=== PATIENT | female | born 1940 | race Caucasian/White ===

== ENCOUNTER 2019-10-21 15:04 | Inpatient (IN) ==
[2019-10-22] MEDS: *HR* Heparin 5,000 UNIT/ML VIAL SQ SCH (23:01)
[2019-10-23 06:26] LABS: Basophils % 0.3 %; Eosinophils # 0.4 K/mcL (0.0-0.6); Hematocrit 29.8 % (35.3-44.9); Hemoglobin 9.8 g/dL (11.5-15.4); Immature Granulocytes % 2.6 % (0-4); Lymphocytes # 1.3 K/mcL (0.6-4.6); Lymphocytes % 20.6 %; Mean Corpuscular HGB Conc 32.9 g/dL (31.6-35.5); Mean Corpuscular Hemoglobin 31.1 pg (28.0-33.3); Mean Corpuscular Volume 94.6 fL (83.0-100.0); Monocytes # 0.6 K/mcL (0.0-1.3); Monocytes % 9.6 %; Neutrophils # 3.9 K/mcL (1.6-8.9); Platelet Count 255 K/mcL (140-400); Red Blood Count 3.15 M/mcL (3.82-4.97); Red Cell Distribution Width 14.2 % (11.5-14.5); Segmented Neutrophils % 60.9 %; White Blood Count 6.5 K/mcL (4.3-11.1)
[2019-10-23 06:27] LABS: Bilirubin,Urine Negative (Negative); Blood,Urine Small (Negative); Clarity,Urine Clear (Clear); Color,Urine Yellow (Yellow); Glucose,Urine (UA) Normal (Normal); Ketones,Urine Negative (Negative); Leukocyte Esterase,Urine Moderate (Negative); Nitrite,Urine Negative (Negative); Protein,Urine Negative (Neg-Trace); Urobilinogen,Urine Normal (Normal)
[2019-10-23 06:45] LABS: Calcium 8.6 mg/dL (8.6-10.3); Potassium 4.1 mEq/L (3.5-5.1)
[2019-10-23 07:17] LABS: RBC,Urine 0-3 per hpf (0-3)
[2019-10-23 07:18] LABS: Bacteria,Urine Moderate per hpf (None-Few); Squamous Epithelial Cell,Urine Many per lpf (None-Few)
[2019-10-23 07:24] LABS: INR 1.1; Prothrombin Time 12.5 Seconds (9.4-12.1)
[2019-10-23 07:27] LABS: Activated Partial Thrombo Time 48.9 Seconds (26.0-36.0)
[2019-10-23] MEDS: Lisinopril 20 MG TABLET PO SCH (08:27)
[2019-10-23] MEDS: Aspirin Enteric Coated 325 MG Tablet PO SCH (08:27)
[2019-10-23] MEDS: NIFEdipine 10 MG CAPSULE PO SCH ×2 (08:27→23:45)
[2019-10-23] MEDS: *HR* Heparin 5,000 UNIT/ML VIAL SQ SCH ×3 (08:28→23:45)
[2019-10-23] MEDS: Trolamine Salicylate/Aloe Vera 85 APPL/85 GM TUBE TP SCH (08:37)
[2019-10-23] MEDS: Cholecalciferol (D-3) 1,000 UNIT (25MCG) TABLET PO SCH (08:37)
[2019-10-23] MEDS ORDERED: Sennosides 8.6 MG TABLET PO SCH (09:00)
[2019-10-23] MEDS ORDERED: Sennosides 8.6 MG TABLET PO PRN (15:34)
[2019-10-24] MEDS: Lisinopril 20 MG TABLET PO SCH (08:47)
[2019-10-24] MEDS: *HR* Heparin 5,000 UNIT/ML VIAL SQ SCH ×2 (08:47→16:48)
[2019-10-24] MEDS: NIFEdipine 10 MG CAPSULE PO SCH ×2 (08:47→21:55)
[2019-10-24] MEDS: Aspirin Enteric Coated 325 MG Tablet PO SCH (08:48)
[2019-10-24] MEDS: Trolamine Salicylate/Aloe Vera 85 APPL/85 GM TUBE TP SCH (08:48)
[2019-10-24] MEDS: Cholecalciferol (D-3) 1,000 UNIT (25MCG) TABLET PO SCH (08:48)
[2019-10-24] MEDS: levoFLOXacin 250 MG TABLET PO SCH (22:36)
[2019-10-25] MEDS: *HR* Heparin 5,000 UNIT/ML VIAL SQ SCH ×4 (00:04→23:29)
[2019-10-25] MEDS: Trolamine Salicylate/Aloe Vera 85 APPL/85 GM TUBE TP SCH (08:45)
[2019-10-25] MEDS: NIFEdipine 10 MG CAPSULE PO SCH ×2 (09:35→20:49)
[2019-10-25] MEDS: Aspirin Enteric Coated 325 MG Tablet PO SCH (09:35)
[2019-10-25] MEDS: Lisinopril 20 MG TABLET PO SCH (09:35)
[2019-10-25] MEDS: levoFLOXacin 250 MG TABLET PO SCH (09:36)
[2019-10-25] MEDS: Cholecalciferol (D-3) 1,000 UNIT (25MCG) TABLET PO SCH ×2 (09:40→09:47)
[2019-10-25] MEDS: CloNIDine Patch 0.3 MG PATCH (WEEKLY) TD SCH (17:41)
[2019-10-26] MEDS: levoFLOXacin 250 MG TABLET PO SCH (08:19)
[2019-10-26] MEDS: Lisinopril 20 MG TABLET PO SCH (08:19)
[2019-10-26] MEDS: NIFEdipine 10 MG CAPSULE PO SCH ×2 (08:19→21:40)
[2019-10-26] MEDS: Aspirin Enteric Coated 325 MG Tablet PO SCH (08:19)
[2019-10-26] MEDS: *HR* Heparin 5,000 UNIT/ML VIAL SQ SCH ×3 (08:19→23:51)
[2019-10-26] MEDS: Trolamine Salicylate/Aloe Vera 85 APPL/85 GM TUBE TP SCH (08:20)
[2019-10-26] MEDS: Cholecalciferol (D-3) 1,000 UNIT (25MCG) TABLET PO SCH (08:20)
[2019-10-27] MEDS: Aspirin Enteric Coated 325 MG Tablet PO SCH (09:03)
[2019-10-27] MEDS: NIFEdipine 10 MG CAPSULE PO SCH ×2 (09:03→21:35)
[2019-10-27] MEDS: Lisinopril 20 MG TABLET PO SCH (09:03)
[2019-10-27] MEDS: Cholecalciferol (D-3) 1,000 UNIT (25MCG) TABLET PO SCH (09:03)
[2019-10-27] MEDS: *HR* Heparin 5,000 UNIT/ML VIAL SQ SCH ×2 (09:03→17:11)
[2019-10-27] MEDS: levoFLOXacin 250 MG TABLET PO SCH (09:03)
[2019-10-27] MEDS: Trolamine Salicylate/Aloe Vera 85 APPL/85 GM TUBE TP SCH (09:04)
[2019-10-28] MEDS: *HR* Heparin 5,000 UNIT/ML VIAL SQ SCH ×3 (00:41→17:00)
[2019-10-28 06:04] LABS: Calcium 8.8 mg/dL (8.6-10.3)
[2019-10-28] MEDS: Cholecalciferol (D-3) 1,000 UNIT (25MCG) TABLET PO SCH (08:35)
[2019-10-28] MEDS: NIFEdipine 10 MG CAPSULE PO SCH ×2 (08:35→20:38)
[2019-10-28] MEDS: Lisinopril 20 MG TABLET PO SCH (08:35)
[2019-10-28] MEDS: levoFLOXacin 250 MG TABLET PO SCH (08:35)
[2019-10-28] MEDS: Aspirin Enteric Coated 325 MG Tablet PO SCH (08:35)
[2019-10-28] MEDS: Trolamine Salicylate/Aloe Vera 85 APPL/85 GM TUBE TP SCH (08:36)
[2019-10-29] MEDS: *HR* Heparin 5,000 UNIT/ML VIAL SQ SCH ×4 (00:06→23:04)
[2019-10-29] MEDS: Trolamine Salicylate/Aloe Vera 85 APPL/85 GM TUBE TP SCH (08:08)
[2019-10-29] MEDS: NIFEdipine 10 MG CAPSULE PO SCH ×2 (08:16→22:59)
[2019-10-29] MEDS: Aspirin Enteric Coated 325 MG Tablet PO SCH (08:16)
[2019-10-29] MEDS: Cholecalciferol (D-3) 1,000 UNIT (25MCG) TABLET PO SCH (08:17)
[2019-10-29] MEDS: Lisinopril 20 MG TABLET PO SCH (08:17)
[2019-10-29] MEDS: levoFLOXacin 250 MG TABLET PO SCH (08:17)
[2019-10-30 05:59] LABS: Basophils % 0.7 %; Eosinophils # 0.2 K/mcL (0.0-0.6); Eosinophils % 4.3 %; Hematocrit 28.7 % (35.3-44.9); Hemoglobin 9.4 g/dL (11.5-15.4); Immature Granulocytes % 1.4 % (0-4); Lymphocytes # 1.2 K/mcL (0.6-4.6); Lymphocytes % 21.5 %; Mean Corpuscular HGB Conc 32.8 g/dL (31.6-35.5); Mean Corpuscular Hemoglobin 30.4 pg (28.0-33.3); Mean Corpuscular Volume 92.9 fL (83.0-100.0); Mean Platelet Volume 10.5 fL (9.4-12.4); Monocytes # 0.6 K/mcL (0.0-1.3); Monocytes % 11.3 %; Neutrophils # 3.4 K/mcL (1.6-8.9); Platelet Count 319 K/mcL (140-400); Red Blood Count 3.09 M/mcL (3.82-4.97); Red Cell Distribution Width 14.3 % (11.5-14.5); Segmented Neutrophils % 60.8 %; White Blood Count 5.6 K/mcL (4.3-11.1)
[2019-10-30 06:15] LABS: Calcium 8.9 mg/dL (8.6-10.3); Potassium 4.9 mEq/L (3.5-5.1)
[2019-10-30] MEDS: Trolamine Salicylate/Aloe Vera 85 APPL/85 GM TUBE TP SCH (08:51)
[2019-10-30] MEDS: Cholecalciferol (D-3) 1,000 UNIT (25MCG) TABLET PO SCH (08:52)
[2019-10-30] MEDS: levoFLOXacin 250 MG TABLET PO SCH (08:52)
[2019-10-30] MEDS: Aspirin Enteric Coated 325 MG Tablet PO SCH (08:53)
[2019-10-30] MEDS: NIFEdipine 10 MG CAPSULE PO SCH ×2 (08:53→20:30)
[2019-10-30] MEDS: Lisinopril 20 MG TABLET PO SCH (08:53)
[2019-10-30] MEDS: *HR* Heparin 5,000 UNIT/ML VIAL SQ SCH ×2 (08:53→17:05)
[2019-10-31] MEDS: *HR* Heparin 5,000 UNIT/ML VIAL SQ SCH ×3 (00:10→16:45)
[2019-10-31] MEDS: Lisinopril 20 MG TABLET PO SCH (08:45)
[2019-10-31] MEDS: Aspirin Enteric Coated 325 MG Tablet PO SCH (08:45)
[2019-10-31] MEDS: NIFEdipine 10 MG CAPSULE PO SCH ×2 (08:45→21:00)
[2019-10-31] MEDS: Cholecalciferol (D-3) 1,000 UNIT (25MCG) TABLET PO SCH (08:45)
[2019-10-31] MEDS: Trolamine Salicylate/Aloe Vera 85 APPL/85 GM TUBE TP SCH (08:45)
[2019-11-01] MEDS: *HR* Heparin 5,000 UNIT/ML VIAL SQ SCH ×4 (00:35→23:00)
[2019-11-01] MEDS: tiZANidine 4 MG TABLET PO PRN (07:48)
[2019-11-01] MEDS: Lisinopril 20 MG TABLET PO SCH (08:56)
[2019-11-01] MEDS: NIFEdipine 10 MG CAPSULE PO SCH ×2 (08:56→22:59)
[2019-11-01] MEDS: Aspirin Enteric Coated 325 MG Tablet PO SCH (08:56)
[2019-11-01] MEDS: Cholecalciferol (D-3) 1,000 UNIT (25MCG) TABLET PO SCH (08:56)
[2019-11-01] MEDS: Trolamine Salicylate/Aloe Vera 85 APPL/85 GM TUBE TP SCH (09:02)
[2019-11-01 12:44] LABS: Calcium 9.7 mg/dL (8.6-10.3); Potassium 5.1 mEq/L (3.5-5.1)
[2019-11-01] MEDS ORDERED: 0.9 % Sodium Chloride 1,000 ML IV ONE (12:57)
[2019-11-01] MEDS: CloNIDine Patch 0.3 MG PATCH (WEEKLY) TD SCH (16:16)
[2019-11-02 06:25] LABS: Calcium 8.6 mg/dL (8.6-10.3); Potassium 4.9 mEq/L (3.5-5.1)
[2019-11-02] MEDS: *HR* Heparin 5,000 UNIT/ML VIAL SQ SCH ×3 (08:41→22:55)
[2019-11-02] MEDS: Aspirin Enteric Coated 325 MG Tablet PO SCH (08:42)
[2019-11-02] MEDS: NIFEdipine 10 MG CAPSULE PO SCH ×2 (08:42→22:55)
[2019-11-02] MEDS: Lisinopril 20 MG TABLET PO SCH (08:42)
[2019-11-02] MEDS: Cholecalciferol (D-3) 1,000 UNIT (25MCG) TABLET PO SCH (08:42)
[2019-11-02] MEDS: Trolamine Salicylate/Aloe Vera 85 APPL/85 GM TUBE TP SCH (08:43)
[2019-11-03 05:15] LABS: Basophils % 0.8 %; Eosinophils # 0.3 K/mcL (0.0-0.6); Eosinophils % 5.8 %; Hematocrit 27.5 % (35.3-44.9); Hemoglobin 8.9 g/dL (11.5-15.4); Immature Granulocytes % 0.8 % (0-4); Lymphocytes # 1.5 K/mcL (0.6-4.6); Lymphocytes % 28.2 %; Mean Corpuscular HGB Conc 32.4 g/dL (31.6-35.5); Mean Corpuscular Volume 95.8 fL (83.0-100.0); Mean Platelet Volume 10.3 fL (9.4-12.4); Monocytes # 0.4 K/mcL (0.0-1.3); Monocytes % 8.1 %; Platelet Count 314 K/mcL (140-400); Red Blood Count 2.87 M/mcL (3.82-4.97); Red Cell Distribution Width 14.9 % (11.5-14.5); Segmented Neutrophils % 56.3 %; White Blood Count 5.3 K/mcL (4.3-11.1)
[2019-11-03 05:38] LABS: Calcium 8.9 mg/dL (8.6-10.3)
[2019-11-03] MEDS: NIFEdipine 10 MG CAPSULE PO SCH ×2 (08:26→22:26)
[2019-11-03] MEDS: Aspirin Enteric Coated 325 MG Tablet PO SCH (08:26)
[2019-11-03] MEDS: *HR* Heparin 5,000 UNIT/ML VIAL SQ SCH ×3 (08:26→23:03)
[2019-11-03] MEDS: Cholecalciferol (D-3) 1,000 UNIT (25MCG) TABLET PO SCH (08:26)
[2019-11-03] MEDS: Trolamine Salicylate/Aloe Vera 85 APPL/85 GM TUBE TP SCH (08:27)
[2019-11-04] MEDS: NIFEdipine 10 MG CAPSULE PO SCH ×2 (09:54→21:46)
[2019-11-04] MEDS: Cholecalciferol (D-3) 1,000 UNIT (25MCG) TABLET PO SCH (09:54)
[2019-11-04] MEDS: Aspirin Enteric Coated 325 MG Tablet PO SCH (09:54)
[2019-11-04] MEDS: Trolamine Salicylate/Aloe Vera 85 APPL/85 GM TUBE TP SCH (09:55)
[2019-11-04] MEDS: *HR* Heparin 5,000 UNIT/ML VIAL SQ SCH ×2 (09:55→15:26)
[2019-11-05] MEDS: *HR* Heparin 5,000 UNIT/ML VIAL SQ SCH ×3 (00:50→16:56)
[2019-11-05 06:08] LABS: Basophils % 0.4 %; Eosinophils # 0.2 K/mcL (0.0-0.6); Eosinophils % 4.6 %; Hematocrit 27.4 % (35.3-44.9); Hemoglobin 8.8 g/dL (11.5-15.4); Immature Granulocytes % 0.7 % (0-4); Lymphocytes # 1.2 K/mcL (0.6-4.6); Lymphocytes % 26.8 %; Mean Corpuscular HGB Conc 32.1 g/dL (31.6-35.5); Mean Corpuscular Hemoglobin 30.3 pg (28.0-33.3); Mean Corpuscular Volume 94.5 fL (83.0-100.0); Monocytes # 0.4 K/mcL (0.0-1.3); Neutrophils # 2.7 K/mcL (1.6-8.9); Platelet Count 276 K/mcL (140-400); Red Cell Distribution Width 14.7 % (11.5-14.5); Segmented Neutrophils % 58.5 %; White Blood Count 4.6 K/mcL (4.3-11.1)
[2019-11-05 06:22] LABS: Calcium 8.7 mg/dL (8.6-10.3); Potassium 5.1 mEq/L (3.5-5.1)
[2019-11-05] MEDS: Cholecalciferol (D-3) 1,000 UNIT (25MCG) TABLET PO SCH (08:05)
[2019-11-05] MEDS: Aspirin Enteric Coated 325 MG Tablet PO SCH (08:05)
[2019-11-05] MEDS: Trolamine Salicylate/Aloe Vera 85 APPL/85 GM TUBE TP SCH (08:05)
[2019-11-05] MEDS: tiZANidine 4 MG TABLET PO PRN (08:06)
[2019-11-05] MEDS: NIFEdipine 10 MG CAPSULE PO SCH ×2 (08:12→20:34)
[2019-11-06] MEDS: *HR* Heparin 5,000 UNIT/ML VIAL SQ SCH ×3 (00:07→16:13)
[2019-11-06] MEDS: NIFEdipine 10 MG CAPSULE PO SCH ×2 (08:29→21:43)
[2019-11-06] MEDS: Trolamine Salicylate/Aloe Vera 85 APPL/85 GM TUBE TP SCH (08:30)
[2019-11-06] MEDS: Cholecalciferol (D-3) 1,000 UNIT (25MCG) TABLET PO SCH (08:30)
[2019-11-06] MEDS: tiZANidine 4 MG TABLET PO PRN (08:30)
[2019-11-06] MEDS: Aspirin Enteric Coated 325 MG Tablet PO SCH (08:30)
[2019-11-07] MEDS: *HR* Heparin 5,000 UNIT/ML VIAL SQ SCH ×3 (00:45→16:45)
[2019-11-07] MEDS: Cholecalciferol (D-3) 1,000 UNIT (25MCG) TABLET PO SCH (08:57)
[2019-11-07] MEDS: Aspirin Enteric Coated 325 MG Tablet PO SCH (08:57)
[2019-11-07] MEDS: NIFEdipine 10 MG CAPSULE PO SCH ×3 (08:57→22:09)
[2019-11-07] MEDS: Trolamine Salicylate/Aloe Vera 85 APPL/85 GM TUBE TP SCH (08:57)
[2019-11-07] MEDS: tiZANidine 4 MG TABLET PO PRN (12:46)
[2019-11-07] MEDS: Famotidine 20 MG TABLET PO SCH (13:41)
[2019-11-08] MEDS: *HR* Heparin 5,000 UNIT/ML VIAL SQ SCH ×4 (00:30→23:43)
[2019-11-08] MEDS: Trolamine Salicylate/Aloe Vera 85 APPL/85 GM TUBE TP SCH (08:24)
[2019-11-08] MEDS: Famotidine 20 MG TABLET PO SCH (08:24)
[2019-11-08] MEDS: Aspirin Enteric Coated 325 MG Tablet PO SCH (08:24)
[2019-11-08] MEDS: Cholecalciferol (D-3) 1,000 UNIT (25MCG) TABLET PO SCH (08:28)
[2019-11-08] MEDS: NIFEdipine 10 MG CAPSULE PO SCH ×2 (08:29→23:43)
[2019-11-08] MEDS: CloNIDine Patch 0.3 MG PATCH (WEEKLY) TD SCH (17:47)
[2019-11-08] MEDS: tiZANidine 4 MG TABLET PO PRN (23:43)
[2019-11-09 05:40] LABS: Basophils % 0.4 %; Eosinophils # 0.3 K/mcL (0.0-0.6); Eosinophils % 6.3 %; Hematocrit 27.8 % (35.3-44.9); Immature Granulocytes % 1.1 % (0-4); Lymphocytes # 1.4 K/mcL (0.6-4.6); Lymphocytes % 30.6 %; Mean Corpuscular HGB Conc 32.4 g/dL (31.6-35.5); Mean Corpuscular Volume 95.9 fL (83.0-100.0); Mean Platelet Volume 10.2 fL (9.4-12.4); Monocytes # 0.4 K/mcL (0.0-1.3); Monocytes % 8.5 %; Neutrophils # 2.4 K/mcL (1.6-8.9); Platelet Count 228 K/mcL (140-400); Segmented Neutrophils % 53.1 %; White Blood Count 4.5 K/mcL (4.3-11.1)
[2019-11-09 05:57] LABS: Potassium 5.2 mEq/L (3.5-5.1)
[2019-11-09] MEDS: NIFEdipine 10 MG CAPSULE PO SCH ×2 (08:38→20:40)
[2019-11-09] MEDS: *HR* Heparin 5,000 UNIT/ML VIAL SQ SCH ×2 (08:39→16:16)
[2019-11-09] MEDS: tiZANidine 4 MG TABLET PO PRN (08:39)
[2019-11-09] MEDS: Famotidine 20 MG TABLET PO SCH (08:39)
[2019-11-09] MEDS: Aspirin Enteric Coated 325 MG Tablet PO SCH (08:39)
[2019-11-09] MEDS: Cholecalciferol (D-3) 1,000 UNIT (25MCG) TABLET PO SCH (08:39)
[2019-11-09] MEDS: Trolamine Salicylate/Aloe Vera 85 APPL/85 GM TUBE TP SCH (08:49)
[2019-11-10] MEDS: *HR* Heparin 5,000 UNIT/ML VIAL SQ SCH ×3 (00:10→17:16)
[2019-11-10 07:36] LABS: Basophils % 0.2 %; Eosinophils # 0.3 K/mcL (0.0-0.6); Eosinophils % 4.8 %; Hematocrit 28.4 % (35.3-44.9); Hemoglobin 9.3 g/dL (11.5-15.4); Lymphocytes # 1.2 K/mcL (0.6-4.6); Mean Corpuscular HGB Conc 32.7 g/dL (31.6-35.5); Mean Corpuscular Hemoglobin 31.2 pg (28.0-33.3); Mean Corpuscular Volume 95.3 fL (83.0-100.0); Mean Platelet Volume 9.5 fL (9.4-12.4); Monocytes # 0.4 K/mcL (0.0-1.3); Neutrophils # 3.4 K/mcL (1.6-8.9); Platelet Count 219 K/mcL (140-400); Red Blood Count 2.98 M/mcL (3.82-4.97); Red Cell Distribution Width 15.2 % (11.5-14.5); White Blood Count 5.3 K/mcL (4.3-11.1)
[2019-11-10 07:55] LABS: Calcium 8.9 mg/dL (8.6-10.3); Potassium 4.4 mEq/L (3.5-5.1)
[2019-11-10] MEDS: Cholecalciferol (D-3) 1,000 UNIT (25MCG) TABLET PO SCH (08:30)
[2019-11-10] MEDS: Aspirin Enteric Coated 325 MG Tablet PO SCH (08:31)
[2019-11-10] MEDS: Trolamine Salicylate/Aloe Vera 85 APPL/85 GM TUBE TP SCH (08:31)
[2019-11-10] MEDS: Famotidine 20 MG TABLET PO SCH (08:31)
[2019-11-10] MEDS: NIFEdipine 10 MG CAPSULE PO SCH ×2 (08:31→20:38)
[2019-11-10] MEDS ORDERED: 0.9 % Sodium Chloride 1,000 ML IV ONE (10:28)
[2019-11-10] MEDS: tiZANidine 4 MG TABLET PO PRN (11:06)
[2019-11-11] MEDS: *HR* Heparin 5,000 UNIT/ML VIAL SQ SCH ×3 (00:22→15:55)
[2019-11-11 08:00] LABS: Basophils % 0.4 %; Eosinophils # 0.3 K/mcL (0.0-0.6); Eosinophils % 5.7 %; Hemoglobin 9.9 g/dL (11.5-15.4); Immature Granulocytes % 0.6 % (0-4); Lymphocytes # 1.2 K/mcL (0.6-4.6); Lymphocytes % 23.4 %; Mean Corpuscular HGB Conc 31.9 g/dL (31.6-35.5); Mean Corpuscular Hemoglobin 30.7 pg (28.0-33.3); Mean Corpuscular Volume 96.3 fL (83.0-100.0); Monocytes # 0.4 K/mcL (0.0-1.3); Monocytes % 7.2 %; Neutrophils # 3.3 K/mcL (1.6-8.9); Platelet Count 224 K/mcL (140-400); Red Blood Count 3.22 M/mcL (3.82-4.97); Red Cell Distribution Width 15.3 % (11.5-14.5); Segmented Neutrophils % 62.7 %; White Blood Count 5.3 K/mcL (4.3-11.1)
[2019-11-11] MEDS: NIFEdipine 10 MG CAPSULE PO SCH ×2 (08:13→21:36)
[2019-11-11] MEDS: Aspirin Enteric Coated 325 MG Tablet PO SCH (08:14)
[2019-11-11] MEDS: Famotidine 20 MG TABLET PO SCH (08:14)
[2019-11-11] MEDS: Cholecalciferol (D-3) 1,000 UNIT (25MCG) TABLET PO SCH (08:14)
[2019-11-11] MEDS: tiZANidine 4 MG TABLET PO PRN (08:14)
[2019-11-11] MEDS: Trolamine Salicylate/Aloe Vera 85 APPL/85 GM TUBE TP SCH (08:14)
[2019-11-11 08:17] LABS: Calcium 8.6 mg/dL (8.6-10.3); Potassium 3.7 mEq/L (3.5-5.1)
[2019-11-12] MEDS: *HR* Heparin 5,000 UNIT/ML VIAL SQ SCH ×4 (00:40→23:32)
[2019-11-12 05:15] LABS: Basophils % 0.2 %; Eosinophils # 0.4 K/mcL (0.0-0.6); Hematocrit 26.4 % (35.3-44.9); Hemoglobin 8.7 g/dL (11.5-15.4); Immature Granulocytes % 0.9 % (0-4); Lymphocytes # 1.3 K/mcL (0.6-4.6); Lymphocytes % 27.1 %; Mean Corpuscular Hemoglobin 31.2 pg (28.0-33.3); Mean Corpuscular Volume 94.6 fL (83.0-100.0); Mean Platelet Volume 10.2 fL (9.4-12.4); Monocytes # 0.4 K/mcL (0.0-1.3); Monocytes % 8.6 %; Neutrophils # 2.6 K/mcL (1.6-8.9); Platelet Count 190 K/mcL (140-400); Red Blood Count 2.79 M/mcL (3.82-4.97); Red Cell Distribution Width 15.2 % (11.5-14.5); Segmented Neutrophils % 55.2 %; White Blood Count 4.7 K/mcL (4.3-11.1)
[2019-11-12 05:30] LABS: Calcium 8.5 mg/dL (8.6-10.3); Potassium 4.1 mEq/L (3.5-5.1)
[2019-11-12] MEDS: Famotidine 20 MG TABLET PO SCH (08:51)
[2019-11-12] MEDS: Aspirin Enteric Coated 325 MG Tablet PO SCH (08:51)
[2019-11-12] MEDS: NIFEdipine 10 MG CAPSULE PO SCH ×2 (08:51→22:14)
[2019-11-12] MEDS: Cholecalciferol (D-3) 1,000 UNIT (25MCG) TABLET PO SCH (08:51)
[2019-11-12] MEDS: Trolamine Salicylate/Aloe Vera 85 APPL/85 GM TUBE TP SCH (08:52)
[2019-11-12] MEDS: tiZANidine 4 MG TABLET PO PRN (08:56)
[2019-11-13] MEDS: Trolamine Salicylate/Aloe Vera 85 APPL/85 GM TUBE TP SCH (08:31)
[2019-11-13] MEDS: Famotidine 20 MG TABLET PO SCH (08:37)
[2019-11-13] MEDS: Cholecalciferol (D-3) 1,000 UNIT (25MCG) TABLET PO SCH (08:38)
[2019-11-13] MEDS: NIFEdipine 10 MG CAPSULE PO SCH ×2 (08:38→20:02)
[2019-11-13] MEDS: *HR* Heparin 5,000 UNIT/ML VIAL SQ SCH ×2 (08:38→16:05)
[2019-11-13] MEDS: Aspirin Enteric Coated 325 MG Tablet PO SCH (08:38)
[2019-11-13] MEDS: tiZANidine 4 MG TABLET PO PRN (08:40)
[2019-11-14] MEDS: *HR* Heparin 5,000 UNIT/ML VIAL SQ SCH ×4 (00:08→23:34)
[2019-11-14 05:26] LABS: Basophils % 0.4 %; Eosinophils # 0.3 K/mcL (0.0-0.6); Eosinophils % 7.2 %; Hematocrit 26.7 % (35.3-44.9); Hemoglobin 8.7 g/dL (11.5-15.4); Immature Granulocytes % 1.1 % (0-4); Lymphocytes # 1.7 K/mcL (0.6-4.6); Lymphocytes % 35.8 %; Mean Corpuscular HGB Conc 32.6 g/dL (31.6-35.5); Mean Corpuscular Hemoglobin 31.3 pg (28.0-33.3); Mean Platelet Volume 10.2 fL (9.4-12.4); Monocytes # 0.4 K/mcL (0.0-1.3); Monocytes % 7.8 %; Neutrophils # 2.2 K/mcL (1.6-8.9); Platelet Count 174 K/mcL (140-400); Red Blood Count 2.78 M/mcL (3.82-4.97); Red Cell Distribution Width 15.5 % (11.5-14.5); Segmented Neutrophils % 47.7 %; White Blood Count 4.6 K/mcL (4.3-11.1)
[2019-11-14 05:38] LABS: Calcium 8.6 mg/dL (8.6-10.3); Potassium 4.3 mEq/L (3.5-5.1)
[2019-11-14] MEDS: tiZANidine 4 MG TABLET PO PRN ×2 (09:16→23:34)
[2019-11-14] MEDS: Aspirin Enteric Coated 325 MG Tablet PO SCH (09:16)
[2019-11-14] MEDS: NIFEdipine 10 MG CAPSULE PO SCH ×2 (09:16→23:35)
[2019-11-14] MEDS: Famotidine 20 MG TABLET PO SCH (09:17)
[2019-11-14] MEDS: Cholecalciferol (D-3) 1,000 UNIT (25MCG) TABLET PO SCH (09:18)
[2019-11-14] MEDS: Trolamine Salicylate/Aloe Vera 85 APPL/85 GM TUBE TP SCH (09:18)
[2019-11-15] MEDS: Aspirin Enteric Coated 325 MG Tablet PO SCH (07:43)
[2019-11-15] MEDS: Cholecalciferol (D-3) 1,000 UNIT (25MCG) TABLET PO SCH (07:43)
[2019-11-15] MEDS: Famotidine 20 MG TABLET PO SCH (07:43)
[2019-11-15] MEDS: NIFEdipine 10 MG CAPSULE PO SCH ×2 (07:43→22:45)
[2019-11-15] MEDS: Trolamine Salicylate/Aloe Vera 85 APPL/85 GM TUBE TP SCH (07:44)
[2019-11-15] MEDS: *HR* Heparin 5,000 UNIT/ML VIAL SQ SCH ×3 (07:44→22:44)
[2019-11-15] MEDS: CloNIDine Patch 0.3 MG PATCH (WEEKLY) TD SCH (16:35)
[2019-11-15] MEDS: tiZANidine 4 MG TABLET PO PRN (22:44)
[2019-11-16] MEDS: Trolamine Salicylate/Aloe Vera 85 APPL/85 GM TUBE TP SCH (08:25)
[2019-11-16] MEDS: *HR* Heparin 5,000 UNIT/ML VIAL SQ SCH ×2 (08:25→16:39)
[2019-11-16] MEDS: Cholecalciferol (D-3) 1,000 UNIT (25MCG) TABLET PO SCH (08:25)
[2019-11-16] MEDS: NIFEdipine 10 MG CAPSULE PO SCH ×2 (08:25→21:17)
[2019-11-16] MEDS: Aspirin Enteric Coated 325 MG Tablet PO SCH (08:26)
[2019-11-16] MEDS: Famotidine 20 MG TABLET PO SCH (08:26)
[2019-11-16] MEDS: tiZANidine 4 MG TABLET PO PRN (08:26)
[2019-11-17] MEDS: *HR* Heparin 5,000 UNIT/ML VIAL SQ SCH ×3 (00:15→16:44)
[2019-11-17] MEDS: Trolamine Salicylate/Aloe Vera 85 APPL/85 GM TUBE TP SCH (09:00)
[2019-11-17] MEDS: Cholecalciferol (D-3) 1,000 UNIT (25MCG) TABLET PO SCH (09:34)
[2019-11-17] MEDS: Aspirin Enteric Coated 325 MG Tablet PO SCH (09:34)
[2019-11-17] MEDS: Famotidine 20 MG TABLET PO SCH (09:34)
[2019-11-17] MEDS: NIFEdipine 10 MG CAPSULE PO SCH ×2 (09:35→21:27)
[2019-11-17] MEDS: tiZANidine 4 MG TABLET PO PRN (13:28)
[2019-11-18] MEDS: *HR* Heparin 5,000 UNIT/ML VIAL SQ SCH ×4 (00:32→23:06)
[2019-11-18] MEDS: Trolamine Salicylate/Aloe Vera 85 APPL/85 GM TUBE TP SCH (08:41)
[2019-11-18] MEDS: Cholecalciferol (D-3) 1,000 UNIT (25MCG) TABLET PO SCH (08:41)
[2019-11-18] MEDS: Famotidine 20 MG TABLET PO SCH (08:41)
[2019-11-18] MEDS: Aspirin Enteric Coated 325 MG Tablet PO SCH (08:41)
[2019-11-18] MEDS: NIFEdipine 10 MG CAPSULE PO SCH ×2 (08:42→23:06)
[2019-11-19 05:59] LABS: Basophils % 0.4 %; Eosinophils # 0.4 K/mcL (0.0-0.6); Eosinophils % 7.5 %; Hematocrit 25.9 % (35.3-44.9); Hemoglobin 8.5 g/dL (11.5-15.4); Lymphocytes # 1.9 K/mcL (0.6-4.6); Lymphocytes % 37.8 %; Mean Corpuscular HGB Conc 32.8 g/dL (31.6-35.5); Mean Corpuscular Hemoglobin 31.5 pg (28.0-33.3); Mean Corpuscular Volume 95.9 fL (83.0-100.0); Monocytes # 0.5 K/mcL (0.0-1.3); Monocytes % 8.8 %; Neutrophils # 2.3 K/mcL (1.6-8.9); Platelet Count 189 K/mcL (140-400); Red Cell Distribution Width 15.9 % (11.5-14.5); Segmented Neutrophils % 44.5 %; White Blood Count 5.1 K/mcL (4.3-11.1)
[2019-11-19 06:12] LABS: Calcium 8.9 mg/dL (8.6-10.3); Potassium 5.3 mEq/L (3.5-5.1)
[2019-11-19] MEDS: Famotidine 20 MG TABLET PO SCH (09:21)
[2019-11-19] MEDS: Aspirin Enteric Coated 325 MG Tablet PO SCH (09:21)
[2019-11-19] MEDS: Cholecalciferol (D-3) 1,000 UNIT (25MCG) TABLET PO SCH (09:22)
[2019-11-19] MEDS: NIFEdipine 10 MG CAPSULE PO SCH ×2 (09:22→20:52)
[2019-11-19] MEDS: *HR* Heparin 5,000 UNIT/ML VIAL SQ SCH ×2 (09:23→16:35)
[2019-11-19] MEDS: Trolamine Salicylate/Aloe Vera 85 APPL/85 GM TUBE TP SCH (09:23)
[2019-11-20] MEDS: *HR* Heparin 5,000 UNIT/ML VIAL SQ SCH ×3 (00:07→16:15)
[2019-11-20 05:59] LABS: Calcium 8.8 mg/dL (8.6-10.3); Potassium 5.2 mEq/L (3.5-5.1)
[2019-11-20] MEDS: Aspirin Enteric Coated 325 MG Tablet PO SCH (09:32)
[2019-11-20] MEDS: Cholecalciferol (D-3) 1,000 UNIT (25MCG) TABLET PO SCH (09:32)
[2019-11-20] MEDS: Famotidine 20 MG TABLET PO SCH (09:32)
[2019-11-20] MEDS: Trolamine Salicylate/Aloe Vera 85 APPL/85 GM TUBE TP SCH (09:33)
[2019-11-20] MEDS: NIFEdipine 10 MG CAPSULE PO SCH ×2 (09:33→21:00)
[2019-11-21] MEDS: *HR* Heparin 5,000 UNIT/ML VIAL SQ SCH ×3 (00:18→16:32)
[2019-11-21 05:43] LABS: Calcium 8.5 mg/dL (8.6-10.3); Potassium 4.8 mEq/L (3.5-5.1)
[2019-11-21] MEDS: Trolamine Salicylate/Aloe Vera 85 APPL/85 GM TUBE TP SCH (08:43)
[2019-11-21] MEDS: NIFEdipine 10 MG CAPSULE PO SCH ×2 (08:44→20:09)
[2019-11-21] MEDS: Aspirin Enteric Coated 325 MG Tablet PO SCH (08:48)
[2019-11-21] MEDS: Cholecalciferol (D-3) 1,000 UNIT (25MCG) TABLET PO SCH (08:48)
[2019-11-21] MEDS: Famotidine 20 MG TABLET PO SCH (08:48)
[2019-11-22] MEDS: *HR* Heparin 5,000 UNIT/ML VIAL SQ SCH ×4 (00:07→23:12)
[2019-11-22] MEDS: Trolamine Salicylate/Aloe Vera 85 APPL/85 GM TUBE TP SCH (08:11)
[2019-11-22] MEDS: NIFEdipine 10 MG CAPSULE PO SCH ×2 (08:11→23:12)
[2019-11-22] MEDS: Famotidine 20 MG TABLET PO SCH (08:16)
[2019-11-22] MEDS: Aspirin Enteric Coated 325 MG Tablet PO SCH (08:16)
[2019-11-22] MEDS: Cholecalciferol (D-3) 1,000 UNIT (25MCG) TABLET PO SCH (08:16)
[2019-11-22] MEDS: CloNIDine Patch 0.3 MG PATCH (WEEKLY) TD SCH (16:56)
[2019-11-23] MEDS: Trolamine Salicylate/Aloe Vera 85 APPL/85 GM TUBE TP SCH (07:41)
[2019-11-23] MEDS: Cholecalciferol (D-3) 1,000 UNIT (25MCG) TABLET PO SCH (07:48)
[2019-11-23] MEDS: Famotidine 20 MG TABLET PO SCH (07:48)
[2019-11-23] MEDS: Aspirin Enteric Coated 325 MG Tablet PO SCH (07:48)
[2019-11-23] MEDS: *HR* Heparin 5,000 UNIT/ML VIAL SQ SCH ×3 (07:48→22:59)
[2019-11-23] MEDS: NIFEdipine 10 MG CAPSULE PO SCH (07:55)
[2019-11-24] MEDS: NIFEdipine 10 MG CAPSULE PO SCH (07:31)
[2019-11-24] MEDS: Trolamine Salicylate/Aloe Vera 85 APPL/85 GM TUBE TP SCH (07:31)
[2019-11-24] MEDS: Cholecalciferol (D-3) 1,000 UNIT (25MCG) TABLET PO SCH (08:31)
[2019-11-24] MEDS: Aspirin Enteric Coated 325 MG Tablet PO SCH (08:31)
[2019-11-24] MEDS: Famotidine 20 MG TABLET PO SCH (08:31)
[2019-11-24] MEDS: *HR* Heparin 5,000 UNIT/ML VIAL SQ SCH ×3 (08:31→22:50)
[2019-11-25] MEDS: tiZANidine 4 MG TABLET PO PRN (08:43)
[2019-11-25] MEDS: Aspirin Enteric Coated 325 MG Tablet PO SCH (08:44)
[2019-11-25] MEDS: Famotidine 20 MG TABLET PO SCH (08:44)
[2019-11-25] MEDS: Cholecalciferol (D-3) 1,000 UNIT (25MCG) TABLET PO SCH (08:44)
[2019-11-25] MEDS: *HR* Heparin 5,000 UNIT/ML VIAL SQ SCH ×3 (08:44→23:09)
[2019-11-25] MEDS: Trolamine Salicylate/Aloe Vera 85 APPL/85 GM TUBE TP SCH (08:45)
[2019-11-26] MEDS: Famotidine 20 MG TABLET PO SCH (08:13)
[2019-11-26] MEDS: Aspirin Enteric Coated 325 MG Tablet PO SCH (08:13)
[2019-11-26] MEDS: Cholecalciferol (D-3) 1,000 UNIT (25MCG) TABLET PO SCH (08:14)
[2019-11-26] MEDS: *HR* Heparin 5,000 UNIT/ML VIAL SQ SCH ×3 (08:14→23:27)
[2019-11-26] MEDS: Trolamine Salicylate/Aloe Vera 85 APPL/85 GM TUBE TP SCH (08:14)
[2019-11-26 18:41] LABS: Basophils % 0.4 %; Eosinophils # 0.5 K/mcL (0.0-0.6); Eosinophils % 8.4 %; Hematocrit 27.3 % (35.3-44.9); Hemoglobin 8.8 g/dL (11.5-15.4); Immature Granulocytes % 0.9 % (0-4); Lymphocytes # 1.6 K/mcL (0.6-4.6); Lymphocytes % 29.4 %; Mean Corpuscular HGB Conc 32.2 g/dL (31.6-35.5); Mean Corpuscular Hemoglobin 31.7 pg (28.0-33.3); Mean Corpuscular Volume 98.2 fL (83.0-100.0); Mean Platelet Volume 9.7 fL (9.4-12.4); Monocytes # 0.5 K/mcL (0.0-1.3); Monocytes % 9.2 %; Neutrophils # 2.9 K/mcL (1.6-8.9); Platelet Count 228 K/mcL (140-400); Red Blood Count 2.78 M/mcL (3.82-4.97); Red Cell Distribution Width 16.1 % (11.5-14.5); Segmented Neutrophils % 51.7 %; White Blood Count 5.6 K/mcL (4.3-11.1)
[2019-11-26 18:57] LABS: Calcium 8.8 mg/dL (8.6-10.3); Potassium 5.4 mEq/L (3.5-5.1)
[2019-11-27] MEDS: Trolamine Salicylate/Aloe Vera 85 APPL/85 GM TUBE TP SCH (08:06)
[2019-11-27] MEDS: Famotidine 20 MG TABLET PO SCH (08:06)
[2019-11-27] MEDS: *HR* Heparin 5,000 UNIT/ML VIAL SQ SCH ×2 (08:06→16:10)
[2019-11-27] MEDS: Cholecalciferol (D-3) 1,000 UNIT (25MCG) TABLET PO SCH (08:07)
[2019-11-27] MEDS: Aspirin Enteric Coated 325 MG Tablet PO SCH (08:07)
[2019-11-28] MEDS: *HR* Heparin 5,000 UNIT/ML VIAL SQ SCH ×3 (00:08→18:02)
[2019-11-28 06:15] LABS: Basophils % 0.2 %; Eosinophils # 0.5 K/mcL (0.0-0.6); Eosinophils % 8.5 %; Hematocrit 26.1 % (35.3-44.9); Hemoglobin 8.5 g/dL (11.5-15.4); Immature Granulocytes % 0.5 % (0-4); Lymphocytes # 2.1 K/mcL (0.6-4.6); Lymphocytes % 34.7 %; Mean Corpuscular HGB Conc 32.6 g/dL (31.6-35.5); Mean Corpuscular Hemoglobin 31.8 pg (28.0-33.3); Mean Corpuscular Volume 97.8 fL (83.0-100.0); Mean Platelet Volume 9.8 fL (9.4-12.4); Monocytes # 0.5 K/mcL (0.0-1.3); Monocytes % 7.7 %; Neutrophils # 2.9 K/mcL (1.6-8.9); Platelet Count 224 K/mcL (140-400); Red Blood Count 2.67 M/mcL (3.82-4.97); Red Cell Distribution Width 16.1 % (11.5-14.5); Segmented Neutrophils % 48.4 %
[2019-11-28 06:29] LABS: Calcium 8.7 mg/dL (8.6-10.3); Potassium 5.4 mEq/L (3.5-5.1)
[2019-11-28] MEDS ORDERED: E-Z-HD (BARIUM SULF) SUSPENSION PO ONE (09:35)
[2019-11-28] MEDS ORDERED: E-Z-PAQUE (BARIUM SULF) SUSP 1 BOTTLE PO ONE (09:35)
[2019-11-28] MEDS: Trolamine Salicylate/Aloe Vera 85 APPL/85 GM TUBE TP SCH (10:33)
[2019-11-28] MEDS: Famotidine 20 MG TABLET PO SCH (10:33)
[2019-11-28] MEDS: Aspirin Enteric Coated 325 MG Tablet PO SCH (10:33)
[2019-11-28] MEDS: Cholecalciferol (D-3) 1,000 UNIT (25MCG) TABLET PO SCH (10:33)
[2019-11-29] MEDS: *HR* Heparin 5,000 UNIT/ML VIAL SQ SCH ×3 (00:27→15:35)
[2019-11-29] MEDS: Cholecalciferol (D-3) 1,000 UNIT (25MCG) TABLET PO SCH (09:05)
[2019-11-29] MEDS: Aspirin Enteric Coated 325 MG Tablet PO SCH (09:05)
[2019-11-29] MEDS: Famotidine 20 MG TABLET PO SCH (09:05)
[2019-11-29] MEDS: Trolamine Salicylate/Aloe Vera 85 APPL/85 GM TUBE TP SCH (09:06)
[2019-11-29] MEDS: tiZANidine 4 MG TABLET PO PRN (13:56)
[2019-11-29] MEDS: CloNIDine Patch 0.3 MG PATCH (WEEKLY) TD SCH (16:47)
[2019-11-30] MEDS: *HR* Heparin 5,000 UNIT/ML VIAL SQ SCH ×3 (04:43→16:19)
[2019-11-30] MEDS: Trolamine Salicylate/Aloe Vera 85 APPL/85 GM TUBE TP SCH (08:53)
[2019-11-30] MEDS: Cholecalciferol (D-3) 1,000 UNIT (25MCG) TABLET PO SCH (09:00)
[2019-11-30] MEDS: Famotidine 20 MG TABLET PO SCH (09:00)
[2019-11-30] MEDS: Aspirin Enteric Coated 325 MG Tablet PO SCH (09:00)
[2019-12-01] MEDS: *HR* Heparin 5,000 UNIT/ML VIAL SQ SCH ×3 (00:03→15:53)
[2019-12-01] MEDS: Famotidine 20 MG TABLET PO SCH (07:59)
[2019-12-01] MEDS: tiZANidine 4 MG TABLET PO PRN (08:01)
[2019-12-01] MEDS: Cholecalciferol (D-3) 1,000 UNIT (25MCG) TABLET PO SCH (08:01)
[2019-12-01] MEDS: Aspirin Enteric Coated 325 MG Tablet PO SCH (08:01)
[2019-12-01] MEDS: Trolamine Salicylate/Aloe Vera 85 APPL/85 GM TUBE TP SCH (08:02)
[2019-12-02] MEDS: *HR* Heparin 5,000 UNIT/ML VIAL SQ SCH ×4 (00:12→22:44)
[2019-12-02 05:55] LABS: Basophils % 0.3 %; Eosinophils # 0.6 K/mcL (0.0-0.6); Eosinophils % 9.4 %; Hematocrit 27.1 % (35.3-44.9); Hemoglobin 8.7 g/dL (11.5-15.4); Immature Granulocytes % 0.6 % (0-4); Lymphocytes # 1.7 K/mcL (0.6-4.6); Mean Corpuscular HGB Conc 32.1 g/dL (31.6-35.5); Mean Corpuscular Hemoglobin 31.5 pg (28.0-33.3); Mean Corpuscular Volume 98.2 fL (83.0-100.0); Mean Platelet Volume 10.1 fL (9.4-12.4); Monocytes # 0.5 K/mcL (0.0-1.3); Monocytes % 7.9 %; Neutrophils # 3.3 K/mcL (1.6-8.9); Platelet Count 216 K/mcL (140-400); Red Blood Count 2.76 M/mcL (3.82-4.97); Red Cell Distribution Width 16.3 % (11.5-14.5); Segmented Neutrophils % 53.8 %; White Blood Count 6.2 K/mcL (4.3-11.1)
[2019-12-02 06:21] LABS: Calcium 8.6 mg/dL (8.6-10.3); Potassium 4.9 mEq/L (3.5-5.1)
[2019-12-02] MEDS: Famotidine 20 MG TABLET PO SCH (08:40)
[2019-12-02] MEDS: Cholecalciferol (D-3) 1,000 UNIT (25MCG) TABLET PO SCH (08:40)
[2019-12-02] MEDS: Aspirin Enteric Coated 325 MG Tablet PO SCH (08:40)
[2019-12-02] MEDS: Trolamine Salicylate/Aloe Vera 85 APPL/85 GM TUBE TP SCH (08:40)
[2019-12-02] MEDS: tiZANidine 4 MG TABLET PO PRN (08:40)
[2019-12-03] MEDS: Trolamine Salicylate/Aloe Vera 85 APPL/85 GM TUBE TP SCH (09:12)
[2019-12-03] MEDS: Cholecalciferol (D-3) 1,000 UNIT (25MCG) TABLET PO SCH (09:23)
[2019-12-03] MEDS: Aspirin Enteric Coated 325 MG Tablet PO SCH (09:24)
[2019-12-03] MEDS: Famotidine 20 MG TABLET PO SCH (09:24)
[2019-12-03] MEDS: *HR* Heparin 5,000 UNIT/ML VIAL SQ SCH ×2 (09:24→16:18)
[2019-12-03] MEDS ORDERED: Lactulose Oral Soln 20 GM/30 ML UDC PO PRN (17:12)
[2019-12-03] MEDS ORDERED: Docusate Oral Soln 100 MG/10 ML UDC PO PRN (17:13)
[2019-12-04] MEDS: *HR* Heparin 5,000 UNIT/ML VIAL SQ SCH ×4 (00:14→23:15)
[2019-12-04] MEDS: Famotidine 20 MG TABLET PO SCH (08:58)
[2019-12-04] MEDS: Cholecalciferol (D-3) 1,000 UNIT (25MCG) TABLET PO SCH (08:58)
[2019-12-04] MEDS: Aspirin Enteric Coated 325 MG Tablet PO SCH (08:58)
[2019-12-04] MEDS: Trolamine Salicylate/Aloe Vera 85 APPL/85 GM TUBE TP SCH (08:59)
[2019-12-05] MEDS: *HR* Heparin 5,000 UNIT/ML VIAL SQ SCH (09:48)
[2019-12-05] MEDS: Trolamine Salicylate/Aloe Vera 85 APPL/85 GM TUBE TP SCH (09:48)
[2019-12-05] MEDS: Cholecalciferol (D-3) 1,000 UNIT (25MCG) TABLET PO SCH (10:09)
[2019-12-05] MEDS: Famotidine 20 MG TABLET PO SCH (10:09)
[2019-12-05] MEDS: Aspirin Enteric Coated 325 MG Tablet PO SCH (10:10)
[2019-12-05 10:54] LABS: Basophils % 0.2 %; Eosinophils # 0.5 K/mcL (0.0-0.6); Eosinophils % 6.2 %; Hematocrit 28.2 % (35.3-44.9); Hemoglobin 8.9 g/dL (11.5-15.4); Immature Granulocytes % 0.5 % (0-4); Lymphocytes # 1.9 K/mcL (0.6-4.6); Lymphocytes % 23.4 %; Mean Corpuscular HGB Conc 31.6 g/dL (31.6-35.5); Mean Corpuscular Hemoglobin 31.6 pg (28.0-33.3); Mean Platelet Volume 10.2 fL (9.4-12.4); Monocytes # 0.4 K/mcL (0.0-1.3); Monocytes % 5.2 %; Neutrophils # 5.3 K/mcL (1.6-8.9); Platelet Count 260 K/mcL (140-400); Red Blood Count 2.82 M/mcL (3.82-4.97); Red Cell Distribution Width 16.6 % (11.5-14.5); Segmented Neutrophils % 64.5 %; White Blood Count 8.2 K/mcL (4.3-11.1)
[2019-12-05 11:00] LABS: Calcium 8.5 mg/dL (8.6-10.3); Potassium 5.4 mEq/L (3.5-5.1)
[2019-12-05 19:46] LABS: Albumin 3.5 g/dL (3.5-5.7); Albumin/Globulin Ratio 1.3 (1.1-2.2); Bilirubin,Direct 3.7 mg/dL (0.0-0.2); Bilirubin,Indirect 1.9 mg/dL (0.0-1.0); Bilirubin,Total 5.6 mg/dL (0.3-1.0); Globulin 2.7 g/dL (2.4-3.5); Total Protein 6.2 g/dL (6.4-8.9)
[2019-12-06 03:33] LABS: Basophils % 0.4 %; Eosinophils # 0.6 K/mcL (0.0-0.6); Eosinophils % 7.7 %; Hematocrit 24.9 % (35.3-44.9); Hemoglobin 8.1 g/dL (11.5-15.4); Immature Granulocytes % 0.4 % (0-4); Lymphocytes % 25.3 %; Mean Corpuscular HGB Conc 32.5 g/dL (31.6-35.5); Mean Corpuscular Hemoglobin 32.1 pg (28.0-33.3); Mean Corpuscular Volume 98.8 fL (83.0-100.0); Mean Platelet Volume 10.1 fL (9.4-12.4); Monocytes # 0.6 K/mcL (0.0-1.3); Monocytes % 7.7 %; Neutrophils # 4.6 K/mcL (1.6-8.9); Platelet Count 247 K/mcL (140-400); Red Blood Count 2.52 M/mcL (3.82-4.97); Red Cell Distribution Width 16.8 % (11.5-14.5); Segmented Neutrophils % 58.5 %; White Blood Count 7.9 K/mcL (4.3-11.1)
[2019-12-06 03:38] LABS: INR 1.3; Prothrombin Time 15.1 Seconds (9.4-12.1)
[2019-12-06 03:41] LABS: Activated Partial Thrombo Time 91.8 Seconds (26.0-36.0)
[2019-12-06 03:51] LABS: Albumin 3.1 g/dL (3.5-5.7); Albumin/Globulin Ratio 1.2 (1.1-2.2); Bilirubin,Direct 3.2 mg/dL (0.0-0.2); Bilirubin,Indirect 1.7 mg/dL (0.0-1.0); Bilirubin,Total 4.9 mg/dL (0.3-1.0); Calcium 7.9 mg/dL (8.6-10.3); Globulin 2.5 g/dL (2.4-3.5); Potassium 4.7 mEq/L (3.5-5.1); Total Protein 5.6 g/dL (6.4-8.9)
[2019-12-06 04:23] LABS: Amylase 21 Units/L (29-103); Lipase 51 Units/L (11-82)
[2019-12-06 09:13] LABS: Hepatitis B Surface Antigen Nonreactive (Nonreactive)
[2019-12-06 09:41] LABS: Hepatitis B Core IgM Nonreactive (Nonreactive)
[2019-12-06 09:43] LABS: Hepatitis A Antibody IgM Nonreactive (Nonreactive)
[2019-12-06] MEDS: Aspirin Enteric Coated 325 MG Tablet PO SCH (10:10)
[2019-12-06] MEDS: Cholecalciferol (D-3) 1,000 UNIT (25MCG) TABLET PO SCH (10:10)
[2019-12-06] MEDS: Famotidine 20 MG TABLET PO SCH (10:10)
[2019-12-06] MEDS: tiZANidine 4 MG TABLET PO PRN (10:11)
[2019-12-06] MEDS: Trolamine Salicylate/Aloe Vera 85 APPL/85 GM TUBE TP SCH (10:38)
[2019-12-06 12:07] LABS: Hepatitis C Virus Antibody Reactive (Nonreactive)
[2019-12-06] MEDS: CloNIDine Patch 0.3 MG PATCH (WEEKLY) TD SCH (17:19)
[2019-12-06] MEDS ORDERED: Ondansetron ODT 4 MG TAB.RAPDIS SL PRN (20:57)
[2019-12-06 21:43] LABS: Albumin/Globulin Ratio 1.2 (1.1-2.2); Amylase 22 Units/L (29-103); Bilirubin,Total 4.4 mg/dL (0.3-1.0); Calcium 7.7 mg/dL (8.6-10.3); Globulin 2.5 g/dL (2.4-3.5); Lipase 34 Units/L (11-82); Potassium 4.3 mEq/L (3.5-5.1); Total Protein 5.5 g/dL (6.4-8.9)
[2019-12-06] MEDS ORDERED: Promethazine 12.5 MG in 0.9 % Sodium Chloride 100 ML IV PRN (21:53)
[2019-12-07 06:35] LABS: Basophils % 0.3 %; Eosinophils # 0.7 K/mcL (0.0-0.6); Eosinophils % 9.1 %; Hematocrit 22.7 % (35.3-44.9); Hemoglobin 7.2 g/dL (11.5-15.4); Immature Granulocytes % 0.5 % (0-4); Lymphocytes # 1.5 K/mcL (0.6-4.6); Lymphocytes % 20.2 %; Mean Corpuscular HGB Conc 31.7 g/dL (31.6-35.5); Mean Corpuscular Hemoglobin 31.6 pg (28.0-33.3); Mean Corpuscular Volume 99.6 fL (83.0-100.0); Mean Platelet Volume 10.6 fL (9.4-12.4); Monocytes # 0.6 K/mcL (0.0-1.3); Monocytes % 8.5 %; Neutrophils # 4.6 K/mcL (1.6-8.9); Platelet Count 244 K/mcL (140-400); Red Blood Count 2.28 M/mcL (3.82-4.97); Segmented Neutrophils % 61.4 %; White Blood Count 7.5 K/mcL (4.3-11.1)
[2019-12-07 06:38] LABS: INR 1.3; Prothrombin Time 14.8 Seconds (9.4-12.1)
[2019-12-07 06:41] LABS: Activated Partial Thrombo Time 42.9 Seconds (26.0-36.0)
[2019-12-07 06:50] LABS: Albumin 2.9 g/dL (3.5-5.7); Albumin/Globulin Ratio 1.3 (1.1-2.2); Bilirubin,Total 3.8 mg/dL (0.3-1.0); Calcium 7.5 mg/dL (8.6-10.3); Globulin 2.3 g/dL (2.4-3.5); Potassium 4.7 mEq/L (3.5-5.1); Total Protein 5.2 g/dL (6.4-8.9)
[2019-12-07] MEDS: Cholecalciferol (D-3) 1,000 UNIT (25MCG) TABLET PO SCH (08:51)
[2019-12-07] MEDS: tiZANidine 4 MG TABLET PO PRN (08:51)
[2019-12-07] MEDS: Famotidine 20 MG TABLET PO SCH (08:52)
[2019-12-07] MEDS: Aspirin Enteric Coated 325 MG Tablet PO SCH (08:52)
[2019-12-07] MEDS: Trolamine Salicylate/Aloe Vera 85 APPL/85 GM TUBE TP SCH (08:54)
[2019-12-07] MEDS ORDERED: Calcium Gluconate 1gm/50mL 1 GM/50 ML BAG IVPB ONE (10:37)
[2019-12-07] MEDS: 0.9 % Sodium Chloride 1,000 ML IVC SCH (13:28)
[2019-12-08] MEDS: 0.9 % Sodium Chloride 1,000 ML IVC SCH (00:05)
[2019-12-08 05:08] LABS: Basophils % 0.3 %; Eosinophils # 0.7 K/mcL (0.0-0.6); Eosinophils % 9.3 %; Hematocrit 21.8 % (35.3-44.9); Hemoglobin 6.8 g/dL (11.5-15.4); Immature Granulocytes % 0.4 % (0-4); Lymphocytes # 1.4 K/mcL (0.6-4.6); Lymphocytes % 19.1 %; Mean Corpuscular HGB Conc 31.2 g/dL (31.6-35.5); Mean Corpuscular Hemoglobin 31.2 pg (28.0-33.3); Mean Platelet Volume 10.4 fL (9.4-12.4); Monocytes # 0.6 K/mcL (0.0-1.3); Monocytes % 8.3 %; Neutrophils # 4.5 K/mcL (1.6-8.9); Platelet Count 240 K/mcL (140-400); Red Blood Count 2.18 M/mcL (3.82-4.97); Red Cell Distribution Width 17.2 % (11.5-14.5); Segmented Neutrophils % 62.6 %; White Blood Count 7.2 K/mcL (4.3-11.1)
[2019-12-08 05:12] LABS: INR 1.4
[2019-12-08 05:16] LABS: Activated Partial Thrombo Time 40.7 Seconds (26.0-36.0)
[2019-12-08 05:24] LABS: Albumin 2.7 g/dL (3.5-5.7); Bilirubin,Total 2.8 mg/dL (0.3-1.0); Calcium 7.4 mg/dL (8.6-10.3); Globulin 2.6 g/dL (2.4-3.5); Potassium 4.8 mEq/L (3.5-5.1); Total Protein 5.3 g/dL (6.4-8.9)
[2019-12-08 08:03] LABS: Hematocrit 23.1 % (35.3-44.9); Hemoglobin 7.1 g/dL (11.5-15.4)
[2019-12-08] MEDS: Cholecalciferol (D-3) 1,000 UNIT (25MCG) TABLET PO SCH (09:12)
[2019-12-08] MEDS: tiZANidine 4 MG TABLET PO PRN (09:13)
[2019-12-08] MEDS: Aspirin Enteric Coated 325 MG Tablet PO SCH (09:13)
[2019-12-08] MEDS: Famotidine 20 MG TABLET PO SCH (09:13)
[2019-12-08] MEDS: Trolamine Salicylate/Aloe Vera 85 APPL/85 GM TUBE TP SCH (09:14)
[2019-12-08 16:38] LABS: Hematocrit 24.1 % (35.3-44.9); Hemoglobin 7.3 g/dL (11.5-15.4)
[2019-12-09] MEDS: Trolamine Salicylate/Aloe Vera 85 APPL/85 GM TUBE TP SCH (09:46)
[2019-12-09] MEDS: tiZANidine 4 MG TABLET PO PRN (09:47)
[2019-12-09] MEDS: Cholecalciferol (D-3) 1,000 UNIT (25MCG) TABLET PO SCH (09:48)
[2019-12-09] MEDS: Famotidine 20 MG TABLET PO SCH (09:48)
[2019-12-09] MEDS: Aspirin Enteric Coated 325 MG Tablet PO SCH (09:48)
[2019-12-10] MEDS ORDERED: Scopolamine Patch 1.5 MG PATCH.TD72 TD ONE (02:00)
[2019-12-10] MEDS: Trolamine Salicylate/Aloe Vera 85 APPL/85 GM TUBE TP SCH (05:32)
[2019-12-10] MEDS: Cholecalciferol (D-3) 1,000 UNIT (25MCG) TABLET PO SCH (05:35)
[2019-12-10] MEDS: Famotidine 20 MG TABLET PO SCH (05:35)
[2019-12-10] MEDS: Aspirin Enteric Coated 325 MG Tablet PO SCH (05:39)
[2019-12-10 05:45] VITALS: BP 106/56
[2019-12-10] MEDS: tiZANidine 4 MG TABLET PO PRN (06:06)
[2019-12-10 11:54] LABS: HCV Quant Log NOT DETECTED log IU/mL
[2019-12-10 14:26] LABS: HCV Quant Interpretation NOT DETECTED (Not Detected)
== END 2019-12-10 07:00 | disposition home health service (06) | DRG 57 ==
LOC: PREOBSVTOIN 15:05 → INPGRE 10-22 16:11
PROVIDERS: ADMIT Family Medicine; ATTEND Family Medicine